=== PATIENT | female | born 1980 | race Caucasian/White ===

== ENCOUNTER 2017-02-28 10:16 | Emergency (ER) | payer MEDICAID ==
[~2017-02-28] VITALS: Ht 152.4 cm; Wt 54.0 kg
[~2017-02-28 10:16] MED LIST: AMOX-291 PO; FLUO20CA19 PO; IBUP800T PO; LURA40TA PO; NORG1TAB26 PO; RISP1TAB45 PO; VENL37.52 PO
[2017-02-28 10:22] VITALS: BP 127/90
== END 2017-02-28 12:17 | disposition home or self-care (01) ==
LOC: ED 12:15
DX: N30.00 Acute cystitis without hematuria (principal); G43.909 Migraine, unspecified, not intractable, without status migrainosus; F41.1 Generalized anxiety disorder; Z90.710 Acquired absence of both cervix and uterus; R68.84 Jaw pain; G89.29 Other chronic pain
CPT/HCPCS: 81003; 99283

== ENCOUNTER 2017-04-05 07:56 | Emergency (ER) | payer MEDICAID ==
[~2017-04-05] VITALS: Ht 152.4 cm; Wt 58.1 kg
[2017-04-05 09:48] LABS: BLOOD UREA NITROGEN 15 mg/dL (7-18)
[2017-04-05 09:54] LABS: ASPARTATE AMINO TRANSFERASE 16 U/L (15-37)
[2017-04-05] MEDS ORDERED: ONDANSETRON 2MG/ML, 2ML ONE (10:48)
[2017-04-05] MEDS ORDERED: ONDANSETRON 2MG/ML, 2ML IVPush ONE (11:00)
[2017-04-05] MEDS ORDERED: SODIUM CHLORIDE FLUSH 10ML SYR IVF ONE (11:00)
[2017-04-05] MEDS ORDERED: SODIUM CHLORIDE 0.9% 1,000ML IVBOLUS ONE (11:00)
[2017-04-05 12:49] VITALS: BP 110/60
== END 2017-04-05 12:53 | disposition home or self-care (01) ==
LOC: ED 11:12
DX: B34.9 Viral infection, unspecified (principal); R11.2 Nausea with vomiting, unspecified; R19.7 Diarrhea, unspecified; G43.909 Migraine, unspecified, not intractable, without status migrainosus; Z90.710 Acquired absence of both cervix and uterus
CPT/HCPCS: 36415; 80053; 81003; 83690; 84703; 85025; 96361; 96374; 99284; J2405; J7030

== ENCOUNTER 2020-08-17 15:14 | Emergency (ER) | payer MEDICAID ==
[~2020-08-17] VITALS: Ht 152.4 cm; Wt 55.2 kg
[~2020-08-17 15:14] MED LIST changes: +IBUP-1223 PO; -IBUP800T PO; -NORG1TAB26 PO; +NORG1TAB77 PO
[2020-08-17 15:22] VITALS: BP 109/75
--- NOTE | 2020-08-17 15:33 | NUR ---
PT CAME IN WANTING TO GET A ALCOHOL DETOX PROGRAM. PT ALSO STATES "I TAKE 20-30 TYLENOL PM A DAY". PT DENIES TAKING TYLENOL TODAY. PT DENIES SI OR SA. "I TAKE THE TYLENOL TO HELP WITH MY ANXIETY. I DONT WANT TO BECAUSE I HAVE A 9 YEAR OLD DAUGHTER". PT RESTING IN [facility]. LABS DRAWN
[2020-08-17 15:43] LABS: BASOPHILS % (AUTO) 1 % (0-1); EOSINOPHILS % (AUTO) 1 % (1-7); LYMPHOCYTES % (AUTO) 44 % (22-44); MD NO; MEAN CORPUSCULAR HEMOGLOBIN 33.8 pg (27.0-34.8); MEAN CORPUSCULAR HGB CONC 33.5 g/dL (32.4-35.8); MEAN PLATELET VOLUME 7.2 fL (7.4-10.4); MONOCYTES % (AUTO) 7 % (2-9); NEUTROPHILS % (AUTO) 47 % (42-75); PLATELET COUNT 385 x10^3/uL (130-400); RED BLOOD COUNT 4.31 x10^6/uL (3.82-5.3); RED CELL DISTRIBUTION WIDTH 13.9 % (9.6-15.2)
[2020-08-17 15:52] LABS: ALANINE AMINOTRANSFERASE 29 U/L (12-78); ALBUMIN 4.1 g/dL (3.4-5.0); ANION GAP 4 mmol/L (5-15); CALCIUM 8.8 mg/dL (8.5-10.1); CHLORIDE 110 mmol/L (98-107)
[2020-08-17 15:55] LABS: ALKALINE PHOSPHATASE 65 U/L (45-117); BILIRUBIN,TOTAL 0.3 mg/dL (0.2-1.0); TOTAL PROTEIN 7.5 g/dL (6.4-8.2)
--- NOTE | 2020-08-17 16:34 | NUR ---
PT TO BE PLACED ON L2K BY MOUNIKA BRITO APRN. PT BELONGINGS PLACES IN PT BELONGING BAG. THERE IS A PURPLE BACKPACK AND 2 WHITE PT BAGS IN BIN #3 - LOCKED IN THE SCURITY LOCKER. IN ON OF THE PT BAGS THERE IS A PURSE WITH WALLET INSIDE. PT IS IN SI SECURED ROOM WITH A SITTER OUTSIDE OF ROOM FOR PT SAFETY. PT CALM, COOPERATIVE AND IS RESTING IN [facility].
--- NOTE | 2020-08-17 16:45 | NUR ---
BEDSIDE REPORT RECEIVED FROM YEE MCCONNELL
[2020-08-17] MEDS ORDERED: LORazepam 1MG TABLET PO PRN (17:00)
--- NOTE | 2020-08-17 17:04 | NUR ---
PT SUPINE ON GURNEY WITH EYES CLOSED. PT PROVIDED WARM BLANKET AND DENIES ANY ADDITIONAL NEEDS AT THIS TIME. SAFETY ALEMAN DOWN, SITTER IN VIEW. WILL CONTINUE TO MONITOR.
[2020-08-17] MEDS ORDERED: LORazepam 1MG TABLET ONE (17:09)
[2020-08-17 18:04] LABS: AMPHETAMINE SCREEN, URINE Negative (Negative); BARBITURATE SCREEN, URINE Negative (Negative); BENZODIAZEPINE SCREEN, URINE Negative (Negative); CANNABINOID SCREEN, URINE Negative (Negative); COCAINE SCREEN, URINE Negative (Negative); METHADONE SCREEN, URINE Negative (Negative); OPIATE SCREEN, URINE Negative (Negative)
[2020-08-18] MEDS ORDERED: ROPI0.254 PO (11:24)
[2020-08-18] MEDS ORDERED: MIRA25TA PO (11:24)
[2020-08-18] MEDS ORDERED: CARI6CAP PO (11:24)
[2020-08-18] MEDS ORDERED: ACAM333T7 PO (11:24)
[2020-08-18] MEDS ORDERED: LORA-446 SL (11:24)
[2020-08-18] MEDS ORDERED: PROP10TA16 PO (11:24)
== END 2020-08-17 18:23 ==
LOC: ED 17:00
DX: F32.9 Major depressive disorder, single episode, unspecified (principal); R45.851 Suicidal ideations; Z20.818 Contact with and (suspected) exposure to other bacterial communicable diseases; R00.0 Tachycardia, unspecified; G43.909 Migraine, unspecified, not intractable, without status migrainosus; Z87.891 Personal history of nicotine dependence; Z90.89 Acquired absence of other organs; Z90.710 Acquired absence of both cervix and uterus; Z90.721 Acquired absence of ovaries, unilateral
CPT/HCPCS: 36415; 80053; 80307; 83735; 85025; 87635; 93005; 99285

== ENCOUNTER 2020-08-17 17:55 | Inpatient (IN) | payer BC, MEDICAID ==
[~2020-08-17] VITALS: Ht 152.4 cm; Wt 49.4 kg
[2020-08-17] MEDS ORDERED: ONDANSETRON ODT 4 MG PO PRN (18:00)
[2020-08-17] MEDS ORDERED: NICOTINE 14MG/24 HR PATCH.TD24 TD ONE (18:00)
[2020-08-17 20:06] VITALS: BP 111/76
[2020-08-17] MEDS: TRAZODONE 50MG TABLET PO PRN (20:20)
[2020-08-17] MEDS ORDERED: POLYETHYLENE GLYCOL 17 GM PACKET PO PRN (20:30)
[2020-08-17] MEDS ORDERED: DOCUSATE 100 MG CAPSULE PO PRN (20:30)
[2020-08-17] MEDS: PLEASE ENTER HEIGHT AND WEIGHT MC SCH (21:07)
[2020-08-17 21:24] VITALS: BP 111/74
[2020-08-18] MEDS: PLEASE ENTER HEIGHT AND WEIGHT MC SCH (05:14)
[2020-08-18 06:24] LABS: MICROSCOPIC NOT IND
[2020-08-18 07:00] VITALS: BP 120/76
[2020-08-18] MEDS ORDERED: HYDROXYZINE PAMOATE 25MG CAP ONE (07:45)
[2020-08-18] MEDS: HYDROXYZINE PAMOATE 50MG CAP PO PRN (07:46)
[2020-08-18 08:16] LABS: CHOL/HDL RATIO 3.6; LDL/HDL RATIO 1.8 (0.5-3.0)
[2020-08-18] MEDS: NICOTINE 14MG/24 HR PATCH.TD24 TD SCH (08:26)
[2020-08-18] MEDS: ACAMPROSATE 333 MG TABLET.DR PO SCH ×3 (08:26→20:28)
[2020-08-18] MEDS ORDERED: LORA-446 SL (11:24)
[2020-08-18] MEDS ORDERED: CARI6CAP PO (11:24)
[2020-08-18] MEDS ORDERED: ROPI0.254 PO (11:24)
[2020-08-18] MEDS ORDERED: MIRA25TA PO (11:24)
[2020-08-18] MEDS ORDERED: PROP10TA16 PO (11:24)
[2020-08-18] MEDS ORDERED: ACAM333T7 PO (11:24)
[2020-08-18] MEDS ORDERED: LORazepam 1MG TABLET PO ONE (11:30)
[2020-08-18] MEDS: LORazepam 1MG TABLET PO SCH ×3 (14:41→20:28)
[2020-08-18] MEDS: VENLAFAXINE XR 37.5MG CAP.ER.24H PO SCH (14:41)
[2020-08-18 19:25] VITALS: BP 112/78
[2020-08-18] MEDS: TRAZODONE 50MG TABLET PO PRN (20:28)
[2020-08-19] MEDS: HYDROXYZINE PAMOATE 50MG CAP PO PRN ×2 (06:26→13:55)
[2020-08-19 07:28] VITALS: BP 110/69
[2020-08-19] MEDS: NICOTINE 14MG/24 HR PATCH.TD24 TD SCH (08:08)
[2020-08-19] MEDS: ACAMPROSATE 333 MG TABLET.DR PO SCH ×3 (08:08→20:43)
[2020-08-19] MEDS: VENLAFAXINE XR 37.5MG CAP.ER.24H PO SCH (08:08)
[2020-08-19] MEDS: LORazepam 1MG TABLET PO SCH ×3 (08:08→20:43)
[2020-08-19] MEDS: CARIPRAZINE 6 MG CAP PO SCH (16:10)
[2020-08-19 19:17] VITALS: BP 107/72
[2020-08-20] MEDS: ACETAMINOPHEN 325 MG TABLET PO PRN ×2 (05:14→12:13)
[2020-08-20] MEDS: HYDROXYZINE PAMOATE 50MG CAP PO PRN (05:21)
[2020-08-20 07:32] VITALS: BP 109/76
[2020-08-20] MEDS: LORazepam 1MG TABLET PO SCH ×2 (08:12→14:45)
[2020-08-20] MEDS: ACAMPROSATE 333 MG TABLET.DR PO SCH ×2 (08:12→14:46)
[2020-08-20] MEDS: CARIPRAZINE 6 MG CAP PO SCH (08:13)
[2020-08-20] MEDS: NICOTINE 14MG/24 HR PATCH.TD24 TD SCH (08:13)
[2020-08-20] MEDS ORDERED: VENLAFAXINE XR 37.5MG CAP.ER.24H PO SCH (09:00)
[2020-08-20] MEDS ORDERED: TRAZ50TA66 PO (13:12)
[2020-08-20] MEDS ORDERED: SERT50TA28 PO (13:12)
[2020-08-20] MEDS ORDERED: HYDR50CA2 PO (13:12)
[2020-08-20] MEDS ORDERED: ACAM333T7 PO (13:12)
[2020-08-20] MEDS ORDERED: NICO-486 TD (13:12)
[2020-08-20] MEDS ORDERED: CARI6CAP PO (13:12)
[2020-08-20] MEDS ORDERED: SERTRALINE 50MG TABLET PO SCH (13:30)
== END 2020-08-20 16:30 | disposition home or self-care (01) | DRG 885 ==
LOC: 3E 18:08
PROVIDERS: ADMIT Psychiatry & Neurology Psychosomatic Medicine; ATTEND Psychiatry & Neurology Psychosomatic Medicine
DX: F33.2 Major depressive disorder, recurrent severe without psychotic features (principal); F41.0 Panic disorder [episodic paroxysmal anxiety]; F41.1 Generalized anxiety disorder; F43.10 Post-traumatic stress disorder, unspecified; G47.00 Insomnia, unspecified; N80.9 Endometriosis, unspecified; R94.31 Abnormal electrocardiogram [ECG] [EKG]; F17.210 Nicotine dependence, cigarettes, uncomplicated; Z79.899 Other long term (current) drug therapy
CPT/HCPCS: 36415; 71045; 80061; 81003; 84439; 84443; 93005; Q0162